=== PATIENT | male | born 1950 | race Caucasian/White ===

== ENCOUNTER 2016-07-25 10:35 | Inpatient (IN) | payer OTHER ==
[~2016-07-25] VITALS: Ht 170.2 cm; Wt 95.0 kg
[~2016-07-25 10:35] MED LIST: ASPIRIN EC81 MG PO; CARDIZEM CD 180 PO; KEFLEX500 M1 PO; ROBITUSSIN AC10 ML PO
[2016-07-25 11:26] LABS: HEMATOCRIT 36.1 % (39.0-50.0); HEMOGLOBIN 13.1 g/dl (14.0-18.0); IMMATURE GRANULOCYTES 0.4 % (0.0-1.0); MEAN CELL VOLUME 91.6 fL CALC (80.0-100.0); MEAN CORPUSCULAR HGB 33.2 pG CALC (26.0-32.0); MEAN CORPUSCULAR HGB CONC 36.3 g/L CALC (32.0-36.0); NEUT# 3.77 thou/uL (1.82-7.42); RED BLOOD COUNT 3.94 mill/uL (4.70-6.10); RED CELL DISTRI WIDTH 13.4 % (11.5-15.5)
[2016-07-25 11:40] LABS: ALBUMIN 4.2 g/dL (3.2-5.0); ALKALINE PHOSPHATASE 77 u/l (38-126); ANION GAP 14 (6-22 (CALC)); BILIRUBIN, TOTAL 1.3 mg/dL (0.0-1.4); BUN 14 mg/dL (8-23); BUN/CREATININE RATIO 22 (12-20 (CALC)); CALCIUM 8.3 mg/dL (8.4-10.2); CARBON DIOXIDE 27 mmol/l (22-30); CHLORIDE 103 mmol/l (95-108); CREATININE 0.6 mg/dL (0.7-1.3); GFR > 60 ML/MIN (>=60 (CALC)); GFR FOR AFR.AMER. > 60 ML/MIN (>=60 (CALC)); GLUCOSE 107 mg/dL (82-115); INTERNATIONAL NORMALIZED RATIO 1.1 RATIO (0.7-1.3); PROTHROMBIN TIME 11.5 SECONDS (9.0-12.5); SGOT/AST 46 u/l (19-48); SGPT/ALT 77 u/l (11-66); SODIUM 139 mmol/l (137-146); TOTAL PROTEIN 7.1 g/dL (6.3-8.2)
[2016-07-25 11:52] LABS: MYOGLOBIN 38 ng/mL (0 - 121)
[2016-07-25] MEDS ORDERED: ZITHROMAX250 MG PO (12:27)
[2016-07-25] MEDS ORDERED: CARDIZEM CD120 MG PO (12:27)
[2016-07-25] MEDS ORDERED: TYLENOL # 31 TA1 PO (12:27)
[2016-07-25 14:15] VITALS: BP 125/82
[2016-07-25 14:30] VITALS: BP 116/67
[2016-07-25 14:45] VITALS: BP 116/77
[2016-07-25 15:00] VITALS: BP 108/82
[2016-07-25 20:00] VITALS: BP 123/63
[2016-07-26] VITALS: BP 116/63
[2016-07-26 04:50] VITALS: BP 108/78
[2016-07-26 05:54] LABS: HEMATOCRIT 37.4 % (39.0-50.0); IMMATURE GRANULOCYTES 0.4 % (0.0-1.0); MEAN CELL VOLUME 93.3 fL CALC (80.0-100.0); MEAN CORPUSCULAR HGB 32.4 pG CALC (26.0-32.0); MEAN CORPUSCULAR HGB CONC 34.8 g/L CALC (32.0-36.0); NEUT# 2.89 thou/uL (1.82-7.42); RED BLOOD COUNT 4.01 mill/uL (4.70-6.10); RED CELL DISTRI WIDTH 13.6 % (11.5-15.5)
[2016-07-26 06:16] LABS: ANION GAP 13 (6-22 (CALC)); BUN 15 mg/dL (8-23); BUN/CREATININE RATIO 23 (12-20 (CALC)); CALCIUM 8.7 mg/dL (8.4-10.2); CALCULATED LDLCHOLESTEROL 91 mg/dL (62-129 (CALC)); CARBON DIOXIDE 29 mmol/l (22-30); CHLORIDE 101 mmol/l (95-108); CREATININE 0.6 mg/dL (0.7-1.3); GFR > 60 ML/MIN (>=60 (CALC)); GFR FOR AFR.AMER. > 60 ML/MIN (>=60 (CALC)); GLUCOSE 107 mg/dL (82-115); HDL CHOLESTEROL 45 mg/dL (>=40); POTASSIUM 4.4 mmol/l (3.5-5.1); SODIUM 139 mmol/l (137-146); TOTAL CHOLESTEROL 151 mg/dl (0-199); TOTAL TRIGLYCERIDES 73 mg/dl (30-149); VLDL CHOLESTROL 15 mg/dl (4-45 (CALC))
[2016-07-26 07:45] VITALS: BP 116/78
[2016-07-26] MEDS ORDERED: MEDDOSEPAK PO (10:06)
[2016-07-26] MEDS ORDERED: CARDIZEM LA300 MG PO (10:06)
[2016-07-26] MEDS ORDERED: ZPAK PO (10:06)
[2016-07-26] MEDS ORDERED: EC ASPIRIN325 M1 PO (10:07)
[2016-07-26] MEDS ORDERED: ROBITUSSIN AC10 ML PO (10:08)
[2016-07-26 10:21] VITALS: BP 116/78
== END 2016-07-26 10:42 | disposition home or self-care (01) | DRG 310 ==
LOC: ENPENDDIS → ED 10:35 → ED-I 11:57 → ED 11:57 → ED-I 12:45 → ED 12:46 → ICU 12:47 → MS2 18:58
PROVIDERS: Emergency Medicine; ADMIT Internal Medicine; ATTEND Internal Medicine
DX: I48.2 Chronic atrial fibrillation (principal); I10 Essential (primary) hypertension; J20.9 Acute bronchitis, unspecified
CPT/HCPCS: J1650